=== PATIENT | female | born 1995 | race Two or more races ===

== ENCOUNTER 2024-05-11 19:14 | Emergency (ER) | payer SELFPAY ==
[2024-05-11 21:24] LABS: BASOPHILS PERCENT AUTO 0.1 % (0.0-1.0); EOSINOPHILS PERCENT AUTO 1.3 % (1.0-3.0); HEMATOCRIT 34.6 % (37.0-47.0); HEMOGLOBIN 11.8 g/dL (12.0-16.0); LYMPHOCYTES PERCENT AUTO 28.7 % (20.5-50.1); MEAN CORPUSCULAR HEMOGLOBIN 31.1 pg (27.0-34.0); MEAN CORPUSCULAR HGB CONC 34.1 g/dL (33.0-35.0); MEAN CORPUSCULAR VOLUME 91.1 fL (80-100); MONOCYTES PERCENT AUTO 7.6 % (2-8); NEUTROPHILS PERCENT AUTO 62.3 % (42.2-75.2); PLATELET COUNT,PLT 299 10^3/uL (150-450); WHITE BLOOD CELL COUNT,WBC 8.6 10^3/uL (5.0-10.0)
[2024-05-11 21:44] LABS: A/G RATIO 1.3; ALBUMIN 3.6 g/dL (3.4-5.0); ANION GAP 15.8 mEq/L (7-13); BILIRUBIN TOTAL 0.4 mg/dL (0.2-1.0); BUN/CREATININE RATIO 10.3 (No establ ref range); CALCIUM 8.9 mg/dL (8.5-10.1); CREATININE 0.68 mg/dL (0.55-1.02); EST CRCL DRUG DOSING (CG) 93.96 mL/min; POTASSIUM,K 3.8 mmol/L (3.5-5.1); PROTEIN TOTAL,TP 6.4 g/dL (6.4-8.2)
== END 2024-05-11 22:23 | disposition home or self-care (01) ==
LOC: DL.ED 19:14
DX: O20.8 Other hemorrhage in early pregnancy (principal); Z3A.09 9 weeks gestation of pregnancy
CPT/HCPCS: 36415; 76815; 80053; 85025; 86850; 86900; 86901; 99284

== ENCOUNTER 2024-12-08 00:02 | Inpatient (IN) | payer BC ==
[~2024-12-08 00:02] MED LIST: Acetaminophen 325 MG Tab PO PRN; Carboprost Tromethamine 250 MCG/1 ML Amp IM PRN; Ondansetron 4 MG/2 ML SDV IVPUSH PRN; Oxytocin/Lactated Ringers 30 UNIT/500 ML BAG IV SCH; Sodium Chloride 0.9% 10 ML Syringe FLUSH PRN; Tranexamic Acid 1,000 MG in Sodium Chloride 0.9% 100 ML IV PRN
[2024-12-08 00:31] LABS: HEMATOCRIT 36.2 % (37.0-47.0); HEMOGLOBIN 12.4 g/dL (12.0-16.0); MEAN CORPUSCULAR HEMOGLOBIN 32.1 pg (27.0-34.0); MEAN CORPUSCULAR HGB CONC 34.3 g/dL (33.0-35.0); MEAN CORPUSCULAR VOLUME 93.8 fL (80-100); RED BLOOD CELL COUNT 3.86 10^6/uL (4.2-5.4)
[2024-12-08] MEDS: Misoprostol 50 MCG (1/2 of 100 MCG) Tab PO SCH (01:43)
[2024-12-08] MEDS: Lactated Ringers 1,000 ML IV SCH (02:37)
[2024-12-08] MEDS: fentaNYL 100 MCG/2 ML SDV IVPUSH PRN (22:54)
[2024-12-09] MEDS: Lactated Ringers 1,000 ML IV ONE (00:04)
[2024-12-09] MEDS ORDERED: ePHEDrine 50 MG/ML SDV IVPUSH PRN (01:14)
[2024-12-09] MEDS ORDERED: Phenylephrine HCl In 0.9% NaCl 1 MG/10 ML Syringe IVPUSH PRN (01:14)
[2024-12-09] MEDS ORDERED: Ropivacaine 200 MG in Premix Bag 1 BAG EPIDUR SCH (01:15)
[2024-12-09] MEDS: Oxytocin/Normal Saline 30 UNIT/500 ML BAG IV SCH (05:50)
[2024-12-09] MEDS: diphenhydrAMINE 50 MG/ML SDV IVPUSH ONE (06:21)
[2024-12-09] MEDS: ePHEDrine 50 MG/ML SDV ONE (06:42)
[2024-12-09] MEDS: Methylergonovine 0.2 MG/1 ML Amp IM PRN (10:59)
[2024-12-09] MEDS: Misoprostol 100 MCG Tab RECTAL PRN (11:05)
[2024-12-09] MEDS ORDERED: Carboprost Tromethamine 250 MCG/1 ML Amp IM PRN (11:14)
[2024-12-09] MEDS ORDERED: Tranexamic Acid 1,000 MG in Sodium Chloride 0.9% 100 ML IV PRN (11:14)
[2024-12-09] MEDS ORDERED: Acetaminophen 325 MG Tab PO PRN (11:14)
[2024-12-09] MEDS ORDERED: Oxytocin 10 Units/1 ML SDV IM PRN (11:14)
[2024-12-09] MEDS ORDERED: Sodium Chloride 0.9% 10 ML Syringe FLUSH PRN (11:14)
[2024-12-09] MEDS ORDERED: Simethicone 80 MG Tab.Chew PO PRN (11:14)
[2024-12-09] MEDS: hydrOXYzine HCl 25 MG Tab PO ONE (12:05)
[2024-12-09] MEDS: Lidocaine 1% 30 ML SDV INJECT ONE (12:05)
[2024-12-09] MEDS: Ibuprofen 800 MG Tab PO SCH (12:18)
[2024-12-09] MEDS: Witch Hazel Medicated Pads 100/Jar TOP PRN (12:23)
[2024-12-09] MEDS: Benzocaine/Menthol 20%-0.5% Spray 78 GM Cannister TOP PRN (12:23)
[2024-12-10] MEDS ORDERED: ePHEDrine 50 MG/ML SDV ONE (05:27)
[2024-12-10] MEDS ORDERED: Phenylephrine 1% 10 MG/ML SDV ONE (05:27)
[2024-12-10] MEDS ORDERED: Succinylcholine 200 MG/10 ML MDV ONE (05:28)
[2024-12-10 06:23] LABS: HEMATOCRIT 30.2 % (37.0-47.0); MEAN CORPUSCULAR HEMOGLOBIN 31.3 pg (27.0-34.0); MEAN CORPUSCULAR HGB CONC 33.1 g/dL (33.0-35.0); MEAN CORPUSCULAR VOLUME 94.7 fL (80-100); RED BLOOD CELL COUNT 3.19 10^6/uL (4.2-5.4); WHITE BLOOD CELL COUNT,WBC 14.7 10^3/uL (5.0-10.0)
[2024-12-10] MEDS: Prenatal Multivitamin with Calcium/Folic Acid/Iron Tab PO SCH (08:19)
[2024-12-10] MEDS: Ferrous Sulfate 325 MG Tab PO SCH (08:19)
[2024-12-10] MEDS: Docusate Sodium 100 MG Cap PO PRN (08:19)
== END 2024-12-10 16:30 | disposition home or self-care (01) | DRG 560 ==
LOC: DL.OB 00:02 → OBSVTOIN 12-09 10:39
PROVIDERS: ADMIT Family Medicine; ATTEND Family Medicine
PROC: 10D07Z6 Extraction of Products of Conception, Vacuum, Via Natural or Artificial Opening (ICD-10-PCS; principal; 2024-12-09)
PROC: 3E033VJ Introduction of Other Hormone into Peripheral Vein, Percutaneous Approach (ICD-10-PCS; 2024-12-09)
PROC: 10907ZC Drainage of Amniotic Fluid, Therapeutic from Products of Conception, Via Natural or Artificial Opening (ICD-10-PCS; 2024-12-09)
PROC: 3E0DXGC Introduction of Other Therapeutic Substance into Mouth and Pharynx, External Approach (ICD-10-PCS; 2024-12-09)
PROC: 0HQ9XZZ Repair Perineum Skin, External Approach (ICD-10-PCS; 2024-12-09)
PROC: 3E0R3BZ Introduction of Anesthetic Agent into Spinal Canal, Percutaneous Approach (ICD-10-PCS; 2024-12-09)
PROC: 00HU33Z Insertion of Infusion Device into Spinal Canal, Percutaneous Approach (ICD-10-PCS; 2024-12-09)
DX: O48.0 Post-term pregnancy (principal); Z3A.40 40 weeks gestation of pregnancy; Z37.0 Single live birth; O72.1 Other immediate postpartum hemorrhage; O70.0 First degree perineal laceration during delivery; O99.62 Diseases of the digestive system complicating childbirth; O34.43 Maternal care for other abnormalities of cervix, third trimester; O99.354 Diseases of the nervous system complicating childbirth; O63.1 Prolonged second stage (of labor); K21.9 Gastro-esophageal reflux disease without esophagitis; G56.00 Carpal tunnel syndrome, unspecified upper limb; O62.0 Primary inadequate contractions
CPT/HCPCS: 36415; 51701; 59409; 85027; A9270-GY; J0330; J1200; J2210; J2590; J3010; J7120